=== PATIENT | male | born 1995 | race Caucasian/White ===

== ENCOUNTER 2017-11-21 08:40 | Emergency (ER) | payer BC ==
[2017-11-21] MEDS: IBUPROFEN 800 MG TAB PO (09:11)
== END 2017-11-21 10:22 | disposition home or self-care (01) ==
LOC: FTE 08:40
DX: S49.91XA Unspecified injury of right shoulder and upper arm, initial encounter (principal); V18.4XXA Pedal cycle driver injured in noncollision transport accident in traffic accident, initial encounter
CPT/HCPCS: 73000; 73030-RT; 99283-25